=== PATIENT | male | born 1965 | race Two or more races ===

== ENCOUNTER 2017-02-15 09:28 | Emergency (ER) | payer OTHER ==
[~2017-02-15] VITALS: Ht 170.2 cm; Wt 88.5 kg
[2017-02-15] MEDS ORDERED: SODIUM CHLORIDE 0.9% 1,000 ML IV ONE (10:02)
[2017-02-15] MEDS ORDERED: HYDROmorphone HCL 2 MG/ML VL IV ONE (10:15)
[2017-02-15] MEDS ORDERED: METOCLOPRAMIDE HCL 5MG/ml INJ 2ml VIAL IV ONE (10:15)
[2017-02-15 10:19] LABS: Basophils # (auto) 0 uL; Basophils % (auto) 0.4 % (0.0-2.0); CONDITION Y; Eosinophils # (auto) 0 uL; Eosinophils % (auto) 0.6 % (0.0-7.0); Hematocrit 45.8 % (41.0-53.0); Hemoglobin 15.9 g/dL (13.5-17.5); Lymphocytes # (auto) 2.5 uL; Lymphocytes % (auto) 36.9 % (10.0-50.0); Mean Corpuscular Hemoglobin 30.7 pg (28.0-32.0); Mean Corpuscular Hgb Conc. 34.7 g/dL (32.0-36.0); Mean Corpuscular Volume 88.4 fL (80.0-100.0); Mean Platelet Volume 8.9 fL (7.4-10.4); Monocytes # (auto) 0.3 uL; Monocytes % (auto) 4.1 % (0.0-12.0); Neutrophils # (auto) 3.9 uL; Platelet Count (auto) 246 10^3/uL (140-450); Red Cell Distribution Width 12.9 % (11.6-16.0); White Blood Cell 6.7 10^3/uL (4.4-10.8)
[2017-02-15 10:50] LABS: Albumin 3.9 g/dL (3.4-5.0); Alkaline Phosphatase 109 U/L (45-117); Anion Gap 8 (5-15); Aspartate Aminotransferase 15 U/L (15-37); BUN/Creatinine Ratio 14.7; Bilirubin, Total 0.9 mg/dL (0.2-1.0); Blood Urea Nitrogen 17 mg/dL (7-18); Calcium 8.6 mg/dL (8.5-10.1); Carbon Dioxide 26 mmol/L (21-32); Chloride 107 mmol/L (98-107); GFR African American 86 mL/min; GFR Non-African American 71 mL/min; Glucose 125 mg/dL (74-106); Magnesium 2.4 mg/dL (1.6-2.6); Potassium 3.6 mmol/L (3.5-5.1); Sodium 141 mmol/L (136-145); Total Protein 7.6 g/dL (6.4-8.2)
[2017-02-15 13:43] LABS: Urine Bilirubin Negative (Negative); Urine Color PINK (Yellow); Urine Glucose Normal (Normal); Urine Ketone Negative (Negative); Urine Nitrite Negative (Negative); Urine RBC 1556 /hpf (0 - 3); Urine Squamous Epithelial Cell FEW /hpf (<5); Urine Urobilinogen Normal (Negative)
[2017-02-15 13:46] LABS: Urine Blood 3+ /uL (Negative)
[2017-02-15 14:28] VITALS: BP 135/80
== END 2017-02-15 15:20 | disposition home or self-care (01) ==
LOC: ER 09:28
DX: N20.0 Calculus of kidney (principal)
CPT/HCPCS: 36415; 74176; 76705; 80053; 81001; 83735; 84484; 85025; 93005; 96361; 96374; 96375; 99285; J1170; J2765; J7030

== ENCOUNTER 2023-08-21 09:46 | Emergency (ER) | payer OTHER ==
[~2023-08-21] VITALS: Ht 170.2 cm; Wt 82.0 kg
[2023-08-21 11:23] VITALS: BP 119/90; PULSE 67; RESP 16; TEMP 98; O2SAT 99
[2023-08-21] MEDS ORDERED: PROM1SOL4 PO (12:04)
[2023-08-21] MEDS ORDERED: AZIT500T66 PO (12:04)
== END 2023-08-21 12:22 | disposition home or self-care (01) ==
LOC: ER 09:46
DX: J20.9 Acute bronchitis, unspecified (principal); J02.9 Acute pharyngitis, unspecified
CPT/HCPCS: 71045